=== PATIENT | female | born 1935 | race Caucasian/White ===

== ENCOUNTER 2017-06-19 09:51 | Emergency (ER) | payer OTHER, MEDICAID ==
[~2017-06-19] VITALS: Ht 160 cm; Wt 65.0 kg
[2017-06-19] MEDS ORDERED: ACETAMINOPHEN 500MG TABLET PO ONE (11:00)
[2017-06-19 11:10] LABS: HEMATOCRIT. 37.9 % (36.0-48.0); HEMOGLOBIN. 12.9 g/dL (12.0-16.0); MEAN CORPUSCULAR HEMOGLOBIN 28.6 pg (28.0-32.0); MEAN CORPUSCULAR VOLUME 83.8 fL (81.0-99.0); MEAN PLATELET VOLUME 8.2 fl (7.4-10.4); PLATELET 255 x1000/uL (130-400); RED BLOOD CELL COUNT 4.53 mill/uL (4.2-5.4); RED CELL DISTRIBUTION WIDTH 14.6 % (11.6-14.6)
[2017-06-19 11:18] LABS: CARBON DIOXIDE 29 mEq/L (21-32); CHLORIDE 105 mEq/L (98-107)
[2017-06-19 11:43] LABS: PLATELET ESTIMATE NORMAL
[2017-06-19 12:11] VITALS: BP 116/51
== END 2017-06-19 12:43 | disposition home or self-care (01) ==
LOC: ER 09:58
DX: M79.1 Myalgia (principal); R51 Headache; F41.9 Anxiety disorder, unspecified; E11.9 Type 2 diabetes mellitus without complications; Z90.710 Acquired absence of both cervix and uterus
CPT/HCPCS: 36415; 71045; 80053; 85025; 87804; 99285

== ENCOUNTER 2021-02-18 20:38 | Emergency (ER) | payer OTHER ==
[~2021-02-18] VITALS: Ht 157.5 cm; Wt 62.7 kg
[2021-02-18] MEDS ORDERED: BACITRACIN ZINC OINT UDPKT TOP ONE (23:45)
[2021-02-18] MEDS ORDERED: TETANUS, DIPHTHERIA, PERTUSSIS VAC/PF 0.5ML (>7YR OLD) IM ONE (23:45)
[2021-02-19] MEDS ORDERED: AMOX-424 MT (01:06)
[2021-02-19 01:15] VITALS: BP 123/71
== END 2021-02-19 01:15 | disposition home or self-care (01) ==
LOC: ER 20:38
DX: S81.05 Open bite of knee (principal); S31.159A Open bite of abdominal wall, unspecified quadrant without penetration into peritoneal cavity, initial encounter; S81.019A Laceration without foreign body, unspecified knee, initial encounter; S31.119A Laceration without foreign body of abdominal wall, unspecified quadrant without penetration into peritoneal cavity, initial encounter; E11.9 Type 2 diabetes mellitus without complications; I10 Essential (primary) hypertension; G30.9 Alzheimer's disease, unspecified; F02.80 Dementia in other diseases classified elsewhere, unspecified severity, without behavioral disturbance, psychotic disturbance, mood disturbance, and anxiety; W54.0XXA Bitten by dog, initial encounter; Y93.9 Activity, unspecified; Y92.9 Unspecified place or not applicable
CPT/HCPCS: 90471; 90715; 99283